=== PATIENT | female | born 1990 | race Caucasian/White ===

== ENCOUNTER → 2016-10-29 | Outpatient (CLI) | payer OTHER ==
--- NOTE | 2016-10-29 11:56 | USB ---
Reason for exam: clinical finding. History: Family history of breast cancer in maternal grandmother. Indicated problem(s): lump or thickening in the left breast. Physical Findings: Nurse Summary: bilateral nodularity, more prominent left breast 12 o'clock, all soft, movable (nurse ts). US Breast LT Left breast ultrasound includes all four quadrants, the retroareolar region and axilla. Finding demonstrates nipple ductal prominence. These results were verbally communicated with the patient and result sheet given to the patient on 10/29/16. ASSESSMENT: Benign, BI-RAD 2 RECOMMENDATION: Routine screening mammogram of both breasts at age 38. (or sooner if clinically indicated) Manage patient on a clinical basis.
== END | disposition home or self-care (01) ==
LOC: RADUSWWP 10:25
PROVIDERS: ATTEND Obstetrics & Gynecology
DX: N63 Unspecified lump in breast (principal)

== ENCOUNTER 2017-07-09 14:20 | Emergency (ER) | payer OTHER ==
[2017-07-09] MEDS ORDERED: RX INFO: IV CONTRAST WAS GIVEN 1 EACH MISC MISCELLANE PRN (14:39)
[2017-07-09 14:51] VITALS: RESP 18
--- NOTE | 2017-07-09 14:52 | ED ---
General Adult HPI - General Chief complaint: Chest Pain Stated complaint: Chest pain/sob Source: patient Mode of arrival: wheelchair Limitations: no limitations - History of Present Illness Initial comments: Juan is a 26 yo female with no significant PMH who presents to the ED today via private vehicle for evaluation of sharp right sided chest pain. Patient reports she had cosmetic surgery, breast augmentation and tummy tuck approximately 3 weeks ago. She has been healing well from that procedure. Patient reports that over the past 3 days she has experienced a pressure in her chest, today she developed a sharp stabbing pain in her right chest. Pain is worse with inspiration. Patient feels like she cannot breathe because her inspiration is limited by pain. Patient has no known cardiac history, no history of DVT/PE, she is uncertain of family history, she is on no estrogen supplements, she reports she has been active since her surgery. She denies any fevers, chills, nausea or vomiting. She denies any pain at her incision sites. - Related Data Home Medications Medication Instructions Recorded Confirmed Cephalexin [Keflex] 250 mg PO QID 07/09/17 07/09/17 Previous Rx's Medication Instructions Recorded Azithromycin 250 mg PO DAILY 4 Days #4 tab 07/09/17 Allergies Allergy/AdvReac Type Severity Reaction Status Date / Time No Known Allergies Allergy Verified 07/09/17 14:34 Review of Systems ROS Statement: Those systems with pertinent positive or pertinent negative responses have been documented in the HPI. ROS Other: All systems not noted in ROS Statement are negative. Constitutional: Denies: fever ENT: Denies: throat pain Respiratory: Reports: dyspnea Cardiovascular: Reports: chest pain, palpitations Endocrine: Denies: fatigue Gastrointestinal: Denies: nausea, vomiting Genitourinary: Denies: urgency, dysuria Musculoskeletal: Denies: back pain Skin: Reports: other (well healing surgical incisions). Denies: rash Neurological: Denies: headache, weakness Psychiatric: Denies: anxiety, depression Hematological/Lymphatic: Denies: easy bleeding, easy bruising Past Medical History Past Medical History: No Reported History History of Any Multi-Drug Resistant Organisms: None Reported Additional Past Surgical History / Comment(s): tummy tuck and breast augmentation Past Psychological History: No Psychological Hx Reported Smoking Status: Never smoker Past Alcohol Use History: Occasional Past Drug Use History: None Reported General Exam Limitations: no limitations General appearance: alert, other (appears uncomfortable, crying) Head exam: Present: atraumatic, normocephalic Eye exam: Present: normal appearance, PERRL ENT exam: Present: normal exam Neck exam: Present: normal inspection Respiratory exam: Present: other (tachypnea, decreased breath sounds on right). Absent: wheezes Cardiovascular Exam: Present: regular rate, normal rhythm, normal heart sounds GI/Abdominal exam: Present: soft. 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 No evidence of acute right heart strain. No S1Q3 T3. No evience of acute ischemia or infarction. Medical Decision Making - Medical Decision Making Patient seen and evaluated Vital signs reviewed - tachy at 94, SpO2 100% on RA History obtained from patient - concern for PE given recent surgery Labs, imaging ordered EKG no acute findings Chest x-ray no acute pathology noted Labs are reviewed, no significant abnormalities CT angiogram of the chest reveals no acute pulmonary embolism however there is noted to be right lower lobe pneumonia. His results were discussed with the patient, patient states that she has been wearing a binder around her abdomen which has prevented her from taking deep breaths since having her surgery. She states that she thought the binder was causing her pain which is why she stopped wearing 3 days ago but her pain is persistent. I agree with the patient that this likely contributed to her development of pneumonia. I provided the patient with an incentive spirometer and patient was taught how to properly use the incentive spirometer by business services tech. First dose of azithromycin was ordered in the ER, patient will be discharged home with the remaining Z-Sadi. Patient advised to treat the pleuritic chest pain with anti-inflammatories such as Motrin and Tylenol. As the patient to return the hospital for any acute worsening of her chest pain, development of worsening shortness breath, fever, productive cough or any new or concerning symptoms. At this time I feel the patient's chest pain is pleuritic in nature and likely related to the development of a pneumonia. I do not feel that the chest pain is secondary to a cardiac cause or any other emergent cause requiring further evaluation or intervention at this time. All questions pertaining to care were answered the best my ability the patient was discharged home in stable condition. - Lab Data Result diagrams: 07/09/17 14:55 07/09/17 14:55 Lab Results 07/09/17 07/09/17 07/09/17 Range/Units 14:55 14:55 14:55 WBC 6.2 (3.8-10.6) k/uL RBC 4.11 (3.80-5.40) m/uL Hgb 12.5 (11.4-16.0) gm/dL Hct 36.5 (34.0-46.0) % MCV 88.8 (80.0-100.0) fL MCH 30.5 (25.0-35.0) pg MCHC 34.4 (31.0-37.0) g/dL RDW 12.3 (11.5-15.5) % Plt Count 373 (150-450) k/uL Neutrophils % 70 % Lymphocytes % 20 % Monocytes % 7 % Eosinophils % 2 % Basophils % 0 % Neutrophils # 4.3 (1.3-7.7) k/uL Lymphocytes # 1.2 (1.0-4.8) k/uL Monocytes # 0.4 (0-1.0) k/uL Eosinophils # 0.1 (0-0.7) k/uL Basophils # 0.0 (0-0.2) k/uL PT (9.0-12.0) sec INR (<1.2) Sodium 142 (137-145) mmol/L Potassium 4.0 (3.5-5.1) mmol/L Chloride 101 (98-107) mmol/L Carbon Dioxide 27 (22-30) mmol/L Anion Gap 14 mmol/L BUN 11 (7-17) mg/dL Creatinine 0.50 L (0.52-1.04) mg/dL Est GFR (CKD-EPI)AfAm >90 (>60 ml/min/1.73 sqM) Est GFR (CKD-EPI)NonAf >90 (>60 ml/min/1.73 sqM) Glucose 94 (74-99) mg/dL Calcium 9.8 (8.4-10.2) mg/dL Troponin I (0.000-0.034) ng/mL NT-Pro-B Natriuret Pep 55 pg/mL Urine HCG, Qual (Not Detectd) 07/09/17 07/09/17 07/09/17 Range/Units 14:55 14:55 14:55 WBC (3.8-10.6) k/uL RBC (3.80-5.40) m/uL Hgb (11.4-16.0) gm/dL Hct (34.0-46.0) % MCV (80.0-100.0) fL MCH (25.0-35.0) pg MCHC (31.0-37.0) g/dL RDW (11.5-15.5) % Plt Count (150-450) k/uL Neutrophils % % Lymphocytes % % Monocytes % % Eosinophils % % Basophils % % Neutrophils # (1.3-7.7) k/uL Lymphocytes # (1.0-4.8) k/uL Monocytes # (0-1.0) k/uL Eosinophils # (0-0.7) k/uL Basophils # (0-0.2) k/uL PT 10.2 (9.0-12.0) sec INR 1.0 (<1.2) Sodium (137-145) mmol/L Potassium (3.5-5.1) mmol/L Chloride (98-107) mmol/L Carbon Dioxide (22-30) mmol/L Anion Gap mmol/L BUN (7-17) mg/dL Creatinine (0.52-1.04) mg/dL Est GFR (CKD-EPI)AfAm (>60 ml/min/1.73 sqM) Est GFR (CKD-EPI)NonAf (>60 ml/min/1.73 sqM) Glucose (74-99) mg/dL Calcium (8.4-10.2) mg/dL Troponin I <0.012 (0.000-0.034) ng/mL NT-Pro-B Natriuret Pep pg/mL Urine HCG, Qual Not Detected (Not Detectd) Disposition Clinical Impression: Right lower lobe pneumonia, Pleuritic chest pain Disposition: HOME SELF-CARE Condition: Good Instructions: Pleurisy (ED), Pneumonia (ED) Prescriptions: Azithromycin 250 mg PO DAILY 4 Days #4 tab Is patient prescribed a controlled substance at d/c from ED?: No If prescribed controlled substance>3 days was MAPS reviewed?: No When asked, does pt state using other controlled substances?: No Referrals: Thien Quesada MD [Primary Care Provider] - 1-2 days Time of Disposition: 17:22
[2017-07-09 15:08] LABS: Basophils % (A) 0 %; Eosinophils # (A) 0.1 k/uL (0-0.7); Eosinophils % (A) 2 %; HCT 36.5 % (34.0-46.0); HGB 12.5 gm/dL (11.4-16.0); Lymphocytes # (A) 1.2 k/uL (1.0-4.8); Lymphocytes % (A) 20 %; MCH 30.5 pg (25.0-35.0); MCHC 34.4 g/dL (31.0-37.0); MCV 88.8 fL (80.0-100.0); Mean Platelet Volume 6.4; Monocytes # (A) 0.4 k/uL (0-1.0); Monocytes % (A) 7 %; Neutrophils # (A) 4.3 k/uL (1.3-7.7); Neutrophils % (A) 70 %; Platelet Count 373 k/uL (150-450); RBC 4.11 m/uL (3.80-5.40); RDW 12.3 % (11.5-15.5); WBC 6.2 k/uL (3.8-10.6)
[2017-07-09 15:19] LABS: Anion Gap 14 mmol/L; Blood Urea Nitrogen 11 mg/dL (7-17); Calcium 9.8 mg/dL (8.4-10.2); Carbon Dioxide 27 mmol/L (22-30); Chloride 101 mmol/L (98-107); Glucose 94 mg/dL (74-99); Sodium 142 mmol/L (137-145)
[2017-07-09 15:21] LABS: Prothrombin Time 10.2 sec (9.0-12.0)
--- NOTE | 2017-07-09 15:44 | XR ---
EXAMINATION TYPE: XR chest 2V DATE OF EXAM: 07/09/2017 COMPARISON: NONE HISTORY: Right-sided chest pain TECHNIQUE: Frontal and lateral views of the chest are obtained. FINDINGS: There is no focal air space opacity, pleural effusion, or pneumothorax seen. The cardiac silhouette size is within normal limits. The osseous structures are intact. IMPRESSION: No acute cardiopulmonary process.
--- NOTE | 2017-07-09 16:51 | CT ---
EXAMINATION TYPE: CT angio chest DATE OF EXAM: 07/09/2017 4:39 PM COMPARISON: NONE HISTORY: Mid Chest pain and pressure with Difficulty breathing for 3 days. Post OP breast augmentati on [address] DLP: 317.7 mGycm Automated exposure control for dose reduction was used. CONTRAST: CTA scan of the thorax is performed with IV Contrast, patient injected with 70 mL of Isovue 370, pulm onary embolism protocol. There are 3-D post processed images.. FINDINGS: There is some minimal reticular nodular infiltrate at the right posterior lung base. There is small r ight pleural effusion. Heart size is normal. There is no pericardial effusion. There is no mediastina l adenopathy. There are no hilar masses. There is normal contrast opacification of pulmonary arteries . I see no filling defect. Thoracic aorta shows no sign of aneurysm or dissection. There are bilatera l breast implants. IMPRESSION: NO EVIDENCE OF PULMONARY EMBOLISM. MINIMAL PLEURAL FLUID AND INFILTRATE AT THE RIGHT LUNG BASE.
[2017-07-09 17:14] VITALS: PULSE 86; TEMP 97.2
[2017-07-09 17:15] VITALS: BP 112/65
[2017-07-09] MEDS ORDERED: AZITHROMYCIN 500 MG TAB PO STA (17:20)
[2017-07-09] MEDS ORDERED: KETOROLAC 30 MG/ML 1 ML VIAL IVP ONE (17:20)
== END 2017-07-09 18:00 | disposition home or self-care (01) ==
LOC: EC 14:20
DX: J18.9 Pneumonia, unspecified organism (principal)
CPT/HCPCS: 36415; 93005; 83880; 80048; 84484; 85025; 85610; 81025; 71046; 71275; 99285; 96374; J1885; Q9967

== ENCOUNTER → 2018-04-08 | Outpatient (CLI) | payer OTHER ==
--- NOTE | 2018-04-11 10:10 | USB ---
Reason for exam: clinical finding. History: Family history of breast cancer in maternal grandmother. Silicone gel implants in both breasts, May 2017. Indicated problem(s): palpable abnormality in the right breast. Physical Findings: Nurse Summary: palpable 8-9 o'clock right breast (nurse kp). US Breast BILAT Right complete breast ultrasound includes all four quadrants, the retroareolar region and axilla. Finding demonstrates a 0.8 x 0.5 x 0.8cm hypoechoic lesion at 6 o'clock and a 2.0 x 1.2 x 1.4cm hypoechoic lesion at 8 o'clock, biopsy advised recommendation for possible biopsy second lesion based on pathology results of index lesion. Left complete breast ultrasound includes all four quadrants, the retroareolar region and axilla. Finding demonstrates a 0.5 x 0.3 x 0.5cm node at 4 o'clock. These results were verbally communicated with the patient and result sheet given to the patient on 04/08/18. ASSESSMENT: Suspicious, BI-RAD 4 RECOMMENDATION: Ultrasound core biopsy of the right breast. Called Dr. Hodge with mammographic findings and has scheduled an appointment for the patient for 04/21/18 at 10:[address]. Whiteside. Biopsy scheduled for 04/15/18 at 9:00. PRELIMINARY REPORT CALLED AND FAXED TO DR. WHITESIDE ON 04/08/18.
== END | disposition home or self-care (01) ==
LOC: RADUSWWP 15:19
PROVIDERS: ATTEND Obstetrics & Gynecology
DX: N63.10 Unspecified lump in the right breast, unspecified quadrant (principal); N63.20 Unspecified lump in the left breast, unspecified quadrant

== ENCOUNTER → 2018-04-15 | Day surgery (SDC) | payer OTHER ==
[2018-04-15 08:27] VITALS: RESP 18; BMI 27.0
--- NOTE | 2018-04-15 09:49 | USB ---
EXAMINATION TYPE: US biopsy breast VAD RT DATE OF EXAM: 04/15/2018 CLINICAL HISTORY: N63 LUMP. Abnormal breast ultrasound. TECHNIQUE: Ultrasound guided core biopsy of right breast. COMPARISON: Bilateral breast ultrasound dated 04/08/2018 FINDINGS: The procedure of ultrasound guided core biopsy was explained to the patient. Benefits, alternatives, and risks were discussed. An informed consent was then obtained. Preprocedural timeout was performed. The patient was placed in supine positioning for imaging and for the procedure. The overlying skin was prepped and draped in usual sterile fashion. 10 cc of lidocaine buffered with bicarbonate was used as anesthetic into the skin and subcutaneous tissues as well as 5 cc of lidocaine with epinephrine in the deeper subcutaneous tissues up to the 2.0 cm mass at the 8:00 position in the right breast. Under ultrasound guidance, a 12-gauge vacuum assisted biopsy gun device was used to obtain 4 core samples. Following this, a coil-shaped biopsy marker was left adjacent to lesion, well visualized on ultrasound. The patient tolerated the procedure well without any immediate complication. The patient was kept in the radiology department for short stay after the procedure and then discharged home in stable condition. IMPRESSION: Successful, uncomplicated ultrasound guided core biopsy of the 2 cm mass at the 8:00 position in the right breast, full pathology results to follow. Note although this mass likely represents a benign fibroadenoma a similar appearing 8 mm mass is seen at the 6:00 position. Recommendation for this mass will be made on radiologic/pathologic correlation. Pathology Results: High Risk RIGHT BREAST, ULTRASOUND GUIDED CORE BIOPSY: Benign fibroepithelial lesion, favor cellular fibroadenoma. See note. Recommendation Surgical consult of the right breast. (Consider excision based on pathology report. Second similar danilo at 6 o'clock zone A on the right. Given the size, 6 month follow up is recommended) [facility]
[2018-04-15 10:23] VITALS: BP 112/68; PULSE 70; TEMP 98
== END ==
LOC: RADUSWWP 07:47
PROVIDERS: ATTEND Surgery
DX: D24.1 Benign neoplasm of right breast (principal)
CPT/HCPCS: 88305; 19083; A4648; J2001

== ENCOUNTER 2018-09-20 13:36 | Emergency (ER) | payer OTHER ==
[2018-09-20 16:47] LABS: Basophils % (A) 0 %; Eosinophils % (A) 1 %; HGB 13.3 gm/dL (11.4-16.0); Lymphocytes # (A) 1.3 k/uL (1.0-4.8); Lymphocytes % (A) 21 %; MCH 30.6 pg (25.0-35.0); MCHC 33.1 g/dL (31.0-37.0); MCV 92.5 fL (80.0-100.0); Mean Platelet Volume 6.7; Monocytes # (A) 0.4 k/uL (0-1.0); Monocytes % (A) 6 %; Neutrophils # (A) 4.4 k/uL (1.3-7.7); Neutrophils % (A) 72 %; Platelet Count 298 k/uL (150-450); RBC 4.33 m/uL (3.80-5.40); RDW 13.3 % (11.5-15.5); WBC 6.2 k/uL (3.8-10.6)
[2018-09-20 16:53] LABS: ALT 28 U/L (9-52); AST 27 U/L (14-36); African American GFR (CKD) >90 (>60 ml/min/1.73 sqM); Albumin 4.8 g/dL (3.5-5.0); Alkaline Phosphatase 51 U/L (38-126); Anion Gap 9 mmol/L; Blood Urea Nitrogen 11 mg/dL (7-17); Calcium 9.6 mg/dL (8.4-10.2); Carbon Dioxide 25 mmol/L (22-30); Chloride 106 mmol/L (98-107); Glucose 100 mg/dL (74-99); Potassium 3.8 mmol/L (3.5-5.1); Sodium 140 mmol/L (137-145); Total Bilirubin 0.5 mg/dL (0.2-1.3); Total Protein 7.4 g/dL (6.3-8.2)
--- NOTE | 2018-09-20 16:55 | ED ---
General Adult HPI - General Chief complaint: Dizziness Stated complaint: Dizziness, eye pressure Time Seen by Provider: 09/20/18 16:06 Source: patient, RN notes reviewed Mode of arrival: ambulatory Limitations: no limitations - History of Present Illness Initial comments: 27-year-old female presents emergency Department from ophthalmology office for evaluation secondary ongoing left eye pressure, dizziness and abnormal findings on exam. Patient was found to have compression of her left optic nerve. They felt that there may be some increase in pressure. Patient was referred to a specialist though she was told that she was concerned she can go to the ER to rule out possible mass. Patient has no blurred vision no current symptoms other than intermittent pressure behind her left eye. Patient does not have chronic migraines. Denies any chest pain, shortness breath, nausea or vomiting. Patient states she is just more concerned than anything. - Related Data Home Medications Medication Instructions Recorded Confirmed Dextroamphetamine/Amphetamine 5 mg PO DAILY PRN 04/11/18 09/20/18 [Adderall] Biotin 5 mg PO DAILY 09/20/18 09/20/18 Multivitamins, Thera [Multivitamin 1 tab PO DAILY 09/20/18 09/20/18 (formulary)] Allergies Allergy/AdvReac Type Severity Reaction Status Date / Time No Known Allergies Allergy Verified 09/20/18 16:06 Review of Systems ROS Statement: Those systems with pertinent positive or pertinent negative responses have been documented in the HPI. ROS Other: All systems not noted in ROS Statement are negative. Past Medical History Past Medical History: No Reported History History of Any Multi-Drug Resistant Organisms: None Reported Past Surgical History: No Surgical Hx Reported Additional Past Surgical History / Comment(s): tummy tuck and breast augmentation Past Psychological History: ADD/ADHD Smoking Status: Never smoker Past Alcohol Use History: Occasional Past Drug Use History: None Reported General Exam Limitations: no limitations General appearance: alert, in no apparent distress Head exam: Present: atraumatic, normocephalic, normal inspection Eye exam: Present: normal appearance, PERRL, EOMI. Absent: scleral icterus, conjunctival injection, periorbital swelling ENT exam: Present: normal exam, normal oropharynx, mucous membranes moist, TM's normal bilaterally Neck exam: Present: normal inspection, full ROM. Absent: tenderness, meningismus, lymphadenopathy Respiratory exam: Present: normal lung sounds bilaterally. Absent: respiratory distress, wheezes, rales, rhonchi, stridor Cardiovascular Exam: Present: regular rate, normal rhythm, normal heart sounds. Absent: systolic murmur, diastolic murmur, rubs, gallop, clicks Neurological exam: Present: alert, oriented X3, CN II-XII intact, reflexes normal. Absent: motor sensory deficit Skin exam: Present: warm, dry, intact, normal color. Absent: rash Course Vital Signs 09/20/18 09/20/18 14:10 16:35 Temperature 98.4 F Pulse Rate 89 79 Respiratory 18 16 Rate Blood Pressure 123/80 113/71 O2 Sat by Pulse 99 98 Oximetry Medical Decision Making - Medical Decision Making 27-year-old female presents emergency Department with chief complaint of ongoing headache dizziness and left eye pressure. This is not an acute onset. Patient was evaluated by insole lip turner referred to a specialist today. Patient was told she did go to the emergency Department to rule out any other concerns. Patient will follow-up with her specialist and return for any worsening symptoms. - Lab Data Result diagrams: 09/20/18 16:34 09/20/18 16:34 Lab Results 09/20/18 09/20/18 Range/Units 16:34 16:34 WBC 6.2 (3.8-10.6) k/uL RBC 4.33 (3.80-5.40) m/uL Hgb 13.3 (11.4-16.0) gm/dL Hct 40.0 (34.0-46.0) % MCV 92.5 (80.0-100.0) fL MCH 30.6 (25.0-35.0) pg MCHC 33.1 (31.0-37.0) g/dL RDW 13.3 (11.5-15.5) % Plt Count 298 (150-450) k/uL Neutrophils % 72 % Lymphocytes % 21 % Monocytes % 6 % Eosinophils % 1 % Basophils % 0 % Neutrophils # 4.4 (1.3-7.7) k/uL Lymphocytes # 1.3 (1.0-4.8) k/uL Monocytes # 0.4 (0-1.0) k/uL Eosinophils # 0.0 (0-0.7) k/uL Basophils # 0.0 (0-0.2) k/uL Sodium 140 (137-145) mmol/L Potassium 3.8 (3.5-5.1) mmol/L Chloride 106 (98-107) mmol/L Carbon Dioxide 25 (22-30) mmol/L Anion Gap 9 mmol/L BUN 11 (7-17) mg/dL Creatinine 0.47 L (0.52-1.04) mg/dL Est GFR (CKD-EPI)AfAm >90 (>60 ml/min/1.73 sqM) Est GFR (CKD-EPI)NonAf >90 (>60 ml/min/1.73 sqM) Glucose 100 H (74-99) mg/dL Calcium 9.6 (8.4-10.2) mg/dL Total Bilirubin 0.5 (0.2-1.3) mg/dL AST 27 (14-36) U/L ALT 28 (9-52) U/L Alkaline Phosphatase 51 (38-126) U/L Total Protein 7.4 (6.3-8.2) g/dL Albumin 4.8 (3.5-5.0) g/dL Disposition Clinical Impression: Dizziness, Eye pressure Disposition: HOME SELF-CARE Condition: Stable Instructions (If sedation given, give patient instructions): Dizziness (ED) Additional Instructions: Please return to the Emergency Department if symptoms worsen or any other concerns. Is patient prescribed a controlled substance at d/c from ED?: No Referrals: Thien Quesada MD [Primary Care Provider] - 1-2 days Time of Disposition: 18:12
--- NOTE | 2018-09-20 17:26 | CT ---
EXAMINATION: CT brain wo con DATE AND TIME: 09/20/2018 4:50 PM CLINICAL INDICATION: PHH; Dizziness, ocular pain, abnormal ophthalmology TECHNIQUE: Standard departmental protocol.; 1024.4; COMPARISON: None. FINDINGS: The calvarium is intact. There is no intracranial hemorrhage. There is no intracranial mass or mass effect. No definite new intra-axial or extra-axial attenuation defect. The paranasal sinuses, middle ear cavities, and mastoid sinus air cells are clear. The orbits are unremarkable. IMPRESSION: NO ACUTE PROCESS.
[2018-09-20 18:23] VITALS: BP 111/74; PULSE 81; RESP 18; TEMP 99.4
== END 2018-09-20 18:22 | disposition home or self-care (01) ==
LOC: EC 13:36
DX: R42 Dizziness and giddiness (principal); H57.89 Other specified disorders of eye and adnexa; Z79.899 Other long term (current) drug therapy
CPT/HCPCS: 36415; 70450; 80053; 85025; 99284

== ENCOUNTER → 2018-09-30 | Outpatient (CLI) | payer OTHER ==
--- NOTE | 2018-09-30 11:56 | USB ---
Reason for exam: follow-up at short interval from prior study. History: Patient has history of high-risk lesion on a previous biopsy at age 27. Family history of breast cancer in maternal grandmother. High risk US biopsy breast VAD RT of the right breast, April 15, 2018. Silicone gel implants in both breasts, May 2017. Physical Findings: Nurse Summary: 1cm palpable in the right breast at 8-9 o'clock (nurse kp). US Breast RT Right complete breast ultrasound includes all four quadrants, the retroareolar region and axilla. Finding demonstrates a 0.8 x 0.5 x 0.9cm hypoechoic, vascular lesion at 6 o'clock previously measured 0.8 x 0.5 x 0.8cm and a 2.0 x 1.4 x 1.4cm hypoechoic, vascular lesion at 8 o'clock previously measured 2.0 x 1.2 x 1.4cm. These results were verbally communicated with the patient and result sheet given to the patient on 09/30/18. ASSESSMENT: Probably benign, BI-RAD 3 RECOMMENDATION: Ultrasound of the right breast in 6 months. (prior biopsy at 8 o'clock, favor fibroadenoma versus phylloides)
== END ==
LOC: RADUSWWP 09:40
PROVIDERS: ATTEND Surgery
DX: N63.10 Unspecified lump in the right breast, unspecified quadrant (principal)

== ENCOUNTER → 2019-04-11 | Outpatient (CLI) | payer OTHER ==
--- NOTE | 2019-04-12 08:34 | USB ---
Reason for exam: clinical finding. History: Patient has history of high-risk lesion on a previous biopsy at age 27. Family history of breast cancer in maternal aunt at age 50 and breast cancer in maternal grandmother. High risk US biopsy breast VAD RT of the right breast, April 15, 2018. Silicone gel implants in both breasts, May 2017. Physical Findings: Nurse Summary: hard, palpable 0.5cm lump right breast 8 o'clock (nurse TM). US Breast RT Right complete breast ultrasound includes all four quadrants, the retroareolar region and axilla. Finding demonstrates a 12 x 7 x 15mm hypoechoic lesion at 6 o'clock, biopsy recommended given interval enlargement 12. x 0.7cm versus 0.8 x 0.5cm and a 18 x 12 x 13mm stable, hypoechoic lesion at 8 o'clock BB. These results were verbally communicated with the patient and result sheet given to the patient on 04/11/19. ASSESSMENT: Suspicious, BI-RAD 4 RECOMMENDATION: Ultrasound core biopsy of the right breast. (6 o'clock) Called office with mammographic findings and has scheduled an appointment for the patient for 05/11/19 at 8:[address] Whiteside. Biopsy scheduled for 05/05/19 at 11:30. PRELIMINARY REPORT CALLED AND FAXED TO DR. WHITESIDE ON 04/12/19.
== END | disposition home or self-care (01) ==
LOC: RADUSWWP 13:56
PROVIDERS: ATTEND Surgery
DX: R92.8 Other abnormal and inconclusive findings on diagnostic imaging of breast (principal)

== ENCOUNTER → 2020-05-09 | Outpatient (CLI) | payer OTHER ==
--- NOTE | 2020-05-09 09:56 | US ---
EXAMINATION TYPE: US thyroid st tissue head/neck DATE OF EXAM: 05/09/2020 COMPARISON: 10/08/2015 CLINICAL HISTORY: E04.1 Thyroid nodule. thyroid nodule trouble swalling GLAND SIZE: Right Lobe: 5.5 x 1.8 x 1.7 cm Overall Parenchyma: homogenous Left Lobe: 5.0 x 1.7 x 2.0 cm Overall Parenchyma: homogeneous Isthmus Thickness: .4 cm NODULES RIGHT: # of nodules measured on right: 1 1. .6 X .4 x .6 cm, lower , mixed cystic and solid, hypoechoic nodule, which is wider than tall, wi th smooth margins, without echogenic foci. Prior size: .6 x .4 x .4 cm LEFT: # of nodules measured on left: 1 1. .7 X .6 x .7 cm, mid , mixed cystic and solid, hypoechoic nodule, which is wider than tall, with smooth margins, without echogenic foci. Prior size: .4 x .5 x .4 cm ISTHMUS: # of nodules measured in the isthmus: 0 Bilateral neck scanned, no evidence of lymphadenopathy. IMPRESSION: 1. Thyromegaly with the bilateral subcentimeter thyroid nodules. No thyroid nodule measuring 1 cm or greater.
== END ==
LOC: RADUSWWP 09:26
PROVIDERS: ATTEND Surgery
DX: E04.2 Nontoxic multinodular goiter (principal)
CPT/HCPCS: 76536

== ENCOUNTER → 2020-05-09 | Day surgery (SDC) | payer OTHER ==
[2020-05-09 10:12] VITALS: TEMP 98.1
--- NOTE | 2020-05-09 11:36 | USB ---
EXAMINATION TYPE: US biopsy breast VAD RT DATE OF EXAM: 05/09/2020 CLINICAL HISTORY: R92.8 ABNORMAL MAMMOGRAM. TECHNIQUE: Ultrasound guided core biopsy of right breast. Referring physician requests 6:00 lesion right breast were core biopsy COMPARISON: 04/11/2019 FINDINGS: The procedure of ultrasound guided core biopsy was explained to the patient. Benefits, alternatives, and risks were discussed. An informed consent was then obtained. The patient was placed in supine positioning for imaging and for the procedure. The overlying skin was prepped and draped in usual sterile fashion. Lidocaine buffered with bicarbonate was used as anesthetic into the skin and subcutaneous tissue up to area of concern in the right breast. A bebeto was made with surgical scalpel. Under ultrasound guidance, a 12-gauge vacuum assisted biopsy gun device was used to obtain 6 core samples from the requested lesion 6:00 position right breast. The patient refused to surgical clip. Therefore, no postprocedural mammogram was performed. The patient tolerated the procedure well without any immediate complication. The patient was kept in the radiology department for short stay after the procedure and then discharged home in stable condition. IMPRESSION: Successful, uncomplicated ultrasound guided core biopsy of area of concern in the right breast, full pathology results to follow. Pathology Results: Benign RIGHT BREAST, CORE BIOPSY: Benign fibroadenoma. Rare microcalcification identified. Recommendation Follow up ultrasound of the right breast in 6 months. KERRI
--- NOTE | 2020-05-09 12:08 | USB ---
Reason for exam: clinical finding. History: Patient has history of high-risk lesion on a previous biopsy at age 27. Family history of breast cancer in maternal aunt at age 50 and breast cancer in maternal grandmother. High risk US biopsy breast VAD RT of the right breast, April 15, 2018. Silicone gel implants in both breasts, May 2017. Physical Findings: Nurse did not find any significant physical abnormalities on exam. US Breast LT Left complete breast ultrasound includes all four quadrants, the retroareolar region and axilla. Finding demonstrates a 5 x 2 x 7mm oval, cystic lesion at the posterior nipple. These results were verbally communicated with the patient and result sheet given to the patient on 05/09/20. ASSESSMENT: Benign, BI-RAD 2 RECOMMENDATION: Routine screening mammogram of both breasts in 1 year.
[2020-05-09 12:12] VITALS: BP 111/75; PULSE 65; RESP 16
== END ==
LOC: RADUSWWP 09:28
PROVIDERS: ATTEND Surgery
DX: D24.1 Benign neoplasm of right breast (principal); R92.0 Mammographic microcalcification found on diagnostic imaging of breast; R92.8 Other abnormal and inconclusive findings on diagnostic imaging of breast
CPT/HCPCS: 88305; 19083; 76641; J2001; 76536

== ENCOUNTER → 2020-10-14 | Outpatient (CLI) | payer OTHER ==
[2020-10-14 15:00] LABS: Basophils % (A) 1 %; Eosinophils # (A) 0.1 k/uL (0-0.7); Eosinophils % (A) 1 %; HCT 40.2 % (34.0-46.0); HGB 13.1 gm/dL (11.4-16.0); Lymphocytes # (A) 1.2 k/uL (1.0-4.8); Lymphocytes % (A) 18 %; MCHC 32.7 g/dL (31.0-37.0); MCV 94.8 fL (80.0-100.0); Mean Platelet Volume 6.9; Monocytes # (A) 0.4 k/uL (0-1.0); Monocytes % (A) 6 %; Neutrophils % (A) 73 %; Platelet Count 337 k/uL (150-450); RBC 4.24 m/uL (3.80-5.40); RDW 13.2 % (11.5-15.5); WBC 6.8 k/uL (3.8-10.6)
[2020-10-14 15:11] LABS: ALT 32 U/L (4-34); AST 29 U/L (14-36); African American GFR (CKD) >90 (>60 ml/min/1.73 sqM); Albumin 4.7 g/dL (3.5-5.0); Albumin/Globulin Ratio 1.8; Alkaline Phosphatase 79 U/L (38-126); Anion Gap 7 mmol/L; Blood Urea Nitrogen 12 mg/dL (7-17); C Reactive Protein 1.3 mg/dL (<1.0); Calcium 9.7 mg/dL (8.4-10.2); Carbon Dioxide 27 mmol/L (22-30); Chloride 103 mmol/L (98-107); Globulin 2.6 g/dL; Glucose 101 mg/dL (74-99); Non-African American GFR(CKD) >90 (>60 ml/min/1.73 sqM); Potassium 4.7 mmol/L (3.5-5.1); Sodium 137 mmol/L (137-145); Total Bilirubin 0.3 mg/dL (0.2-1.3); Total Protein 7.3 g/dL (6.3-8.2)
[2020-10-14 15:34] LABS: Creatine Kinase MB 0.7 ng/mL (0.0-2.4); Troponin I <0.012 ng/mL (0.000-0.034)
[2020-10-14 17:37] LABS: Erythrocyte Sedimentation Rate 14 mm/hr (0-20)
== END | disposition home or self-care (01) ==
LOC: LABWHC1 14:38
PROVIDERS: ATTEND Nurse Practitioner Adult Health
DX: R07.9 Chest pain, unspecified (principal)
CPT/HCPCS: 36415; 80053; 82553; 84484; 85025; 85379; 85652; 86140

== ENCOUNTER → 2020-11-11 | Outpatient (CLI) | payer OTHER ==
--- NOTE | 2020-11-11 09:52 | USB ---
Reason for exam: clinical finding. History: Patient has history of high-risk lesion on a previous biopsy at age 27. Family history of breast cancer in maternal aunt at age 50 and breast cancer in maternal grandmother at age 50. Benign US biopsy breast VAD RT of the right breast, May 09, 2020. High risk US biopsy breast VAD RT of the right breast, April 15, 2018. Silicone gel implants in both breasts, May 2017. Physical Findings: Nurse Summary: right breast palpable 8 o'clock, 1 x 1cm, movable, nontender (nurse ts). US Breast RT Right complete breast ultrasound includes all four quadrants, the retroareolar region and axilla. Finding demonstrates a 0.9 x 0.7 x 1.1cm hypoechoic lesion at 6 o'clock and a 1.0 x 0.9 x 0.9cm hypoechoic lesion at 8 o'clock, consistent with fibroadenoma. These results were verbally communicated with the patient and result sheet given to the patient on 11/11/20. ASSESSMENT: Benign, BI-RAD 2 RECOMMENDATION: Routine screening mammogram of both breasts in 6 months. Back on schedule for April 2021.
== END | disposition home or self-care (01) ==
LOC: RADUSWWP 09:07
PROVIDERS: ATTEND Surgery
DX: R92.8 Other abnormal and inconclusive findings on diagnostic imaging of breast (principal)

== ENCOUNTER 2020-11-27 11:30 | Emergency (ER) | payer OTHER ==
[2020-11-27 11:53] VITALS: TEMP 98.8
[2020-11-27 13:09] LABS: Amorphous Sediment,Urine Moderate /hpf; Appearance,Urine Cloudy (Clear); Bilirubin,Urine Negative (Negative); Blood,Urine Negative (Negative); Color,Urine Light Yellow; Glucose,Urine (UA) Negative (Negative); Ketones,Urine Negative (Negative); Leukocyte Esterase,Urine Negative (Negative); Mucus,Urine Rare /hpf; Nitrite,Urine Negative (Negative); PH, Urine 7.5 (5.0-8.0); Protein,Urine Negative (Negative); RBC,Urine 1 /hpf (0-5); Specific Gravity,Urine 1.014 (1.001-1.035); Squamous Epithelial Cell,Urine <1 /hpf (0-4); Urobilinogen,Urine <2.0 mg/dL (<2.0); WBC,Urine 4 /hpf (0-5)
[2020-11-27] MEDS ORDERED: SODIUM CHLORIDE 0.9% 1,000 ML IV STA (13:35)
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
[2020-11-27 14:14] LABS: Basophils % (A) 0 %; Eosinophils # (A) 0.1 k/uL (0-0.7); Eosinophils % (A) 2 %; HCT 40.1 % (34.0-46.0); Lymphocytes # (A) 1.6 k/uL (1.0-4.8); Lymphocytes % (A) 17 %; MCH 30.7 pg (25.0-35.0); MCHC 32.5 g/dL (31.0-37.0); MCV 94.5 fL (80.0-100.0); Mean Platelet Volume 6.8; Monocytes # (A) 0.5 k/uL (0-1.0); Monocytes % (A) 6 %; Neutrophils % (A) 75 %; Platelet Count 319 k/uL (150-450); RBC 4.24 m/uL (3.80-5.40); RDW 12.9 % (11.5-15.5); WBC 9.4 k/uL (3.8-10.6)
[2020-11-27 14:22] LABS: ALT 26 U/L (4-34); AST 24 U/L (14-36); African American GFR (CKD) >90 (>60 ml/min/1.73 sqM); Albumin 4.2 g/dL (3.5-5.0); Alkaline Phosphatase 68 U/L (38-126); Amylase 70 U/L (30-110); Anion Gap 7 mmol/L; Blood Urea Nitrogen 9 mg/dL (7-17); Calcium 9.7 mg/dL (8.4-10.2); Carbon Dioxide 27 mmol/L (22-30); Chloride 103 mmol/L (98-107); Glucose 98 mg/dL (74-99); Lipase 263 U/L (23-300); Non-African American GFR(CKD) >90 (>60 ml/min/1.73 sqM); Potassium 4.5 mmol/L (3.5-5.1); Sodium 137 mmol/L (137-145); Total Bilirubin 0.2 mg/dL (0.2-1.3); Total Protein 6.9 g/dL (6.3-8.2)
--- NOTE | 2020-11-27 14:56 | CT ---
EXAMINATION TYPE: CT abdomen pelvis w con DATE OF EXAM: 11/27/2020 COMPARISON: None INDICATION: Abdominal distension and pain. DLP: 1011.1 mGycm, Automated exposure control for dose reduction was used. CONTRAST: 100 mL of Isovue 300. Study performed without Oral Contrast TECHNIQUE: Axial images were obtained from above the diaphragm to the pubic rami in the axial plane a t 5 mm thick sections. Reconstructed images are reviewed on the computer in the coronal plane. FINDINGS: Limited CT sections are obtained the lung bases. The lung bases are clear. Bilateral breast prosthe ses are noted. CT ABDOMEN: Liver: There is a 1.5 cm hypodensity which may have peripheral enhancement in the left lobe liver. Co rrelation with hepatic ultrasound is recommended. Evaluate for possible hemangioma. Spleen: Normal Pancreas: Normal Adrenal glands: The adrenal glands are normal. Gallbladder: Not identified. Correlate with surgical history. Kidneys: No masses are evident. No hydronephrosis is present. No cysts are present. Delayed images were obtained through the kidneys, which remain unremarkable. Aorta: Normal Inferior vena cava: Normal. CT PELVIS: Loops of bowel within the abdomen and pelvis are normal. There are loops of bowel which are incom pletely distended or lack oral contrast limiting their evaluation. Appendix: Normal as visualized. Urinary bladder: Normal. Genitourinary structures: Uterus and ovaries appear within normal limits for the patient's age. Osseous structures: No suspicious lytic or sclerotic lesions. There is a small sclerotic area on the right pubic symphysis may be a bone island. IMPRESSIONS: 1. Suspect hemangioma within the left lobe liver. Correlate with ultrasound. 2. No suspicious abnormalities to account for abdominal distention and pain
[2020-11-27 15:26] VITALS: BP 116/72; PULSE 73; RESP 16
== END 2020-11-27 15:26 | disposition home or self-care (01) ==
LOC: EC 11:30
DX: D18.09 Hemangioma of other sites (principal); R05 Cough; F90.9 Attention-deficit hyperactivity disorder, unspecified type; Z20.822 Contact with and (suspected) exposure to COVID-19; Z79.899 Other long term (current) drug therapy
CPT/HCPCS: 36415; 80053; 82150; 83690; 85025; 81001; 81025; 87635; 74177; 99285; Q9967

== ENCOUNTER 2021-01-07 22:32 | Emergency (ER) | payer OTHER ==
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
[2021-01-08 00:59] LABS: Basophils % (A) 0 %; Eosinophils % (A) 1 %; HCT 38.4 % (34.0-46.0); HGB 13.3 gm/dL (11.4-16.0); Lymphocytes # (A) 1.7 k/uL (1.0-4.8); Lymphocytes % (A) 23 %; MCH 31.5 pg (25.0-35.0); MCHC 34.5 g/dL (31.0-37.0); MCV 91.3 fL (80.0-100.0); Mean Platelet Volume 6.8; Monocytes # (A) 0.5 k/uL (0-1.0); Monocytes % (A) 6 %; Neutrophils # (A) 5.2 k/uL (1.3-7.7); Neutrophils % (A) 69 %; Platelet Count 314 k/uL (150-450); RBC 4.21 m/uL (3.80-5.40); RDW 13.2 % (11.5-15.5); WBC 7.5 k/uL (3.8-10.6)
[2021-01-08 01:11] LABS: ALT 24 U/L (4-34); AST 25 U/L (14-36); African American GFR (CKD) >90 (>60 ml/min/1.73 sqM); Albumin 4.6 g/dL (3.5-5.0); Alkaline Phosphatase 56 U/L (38-126); Anion Gap 8 mmol/L; Blood Urea Nitrogen 10 mg/dL (7-17); Calcium 9.4 mg/dL (8.4-10.2); Carbon Dioxide 24 mmol/L (22-30); Chloride 104 mmol/L (98-107); Glucose 92 mg/dL (74-99); Non-African American GFR(CKD) >90 (>60 ml/min/1.73 sqM); Potassium 3.6 mmol/L (3.5-5.1); Sodium 136 mmol/L (137-145); Total Bilirubin 0.4 mg/dL (0.2-1.3); Total Protein 7.4 g/dL (6.3-8.2)
[2021-01-08 01:17] LABS: Appearance,Urine Cloudy (Clear); Bilirubin,Urine Negative (Negative); Blood,Urine Negative (Negative); Color,Urine Yellow; Glucose,Urine (UA) Negative (Negative); Ketones,Urine 1+ (Negative); Leukocyte Esterase,Urine Trace (Negative); Mucus,Urine Moderate /hpf; Nitrite,Urine Negative (Negative); Protein,Urine Trace (Negative); RBC,Urine 2 /hpf (0-5); Specific Gravity,Urine 1.026 (1.001-1.035); Squamous Epithelial Cell,Urine 9 /hpf (0-4); Urobilinogen,Urine <2.0 mg/dL (<2.0); WBC,Urine 4 /hpf (0-5)
[2021-01-08 02:08] VITALS: RESP 18
[2021-01-08 02:14] VITALS: BP 113/80; PULSE 70; TEMP 98
== END 2021-01-08 01:35 | disposition home or self-care (01) ==
LOC: EC 22:32
DX: R07.9 Chest pain, unspecified (principal); R42 Dizziness and giddiness; F42.9 Obsessive-compulsive disorder, unspecified
CPT/HCPCS: 36415; 80053; 81001; 85025; 93005; 99285

== ENCOUNTER → 2021-02-05 | Outpatient (CLI) | payer OTHER ==
--- NOTE | 2021-02-05 14:54 | USB ---
Reason for exam: clinical finding. History: Patient has history of high-risk lesion on a previous biopsy at age 27. Family history of breast cancer in maternal aunt at age 50 and breast cancer in maternal grandmother at age 50. Benign US biopsy breast VAD RT of the right breast, May 09, 2020. High risk US biopsy breast VAD RT of the right breast, April 15, 2018. Silicone gel implants in both breasts, May 2017. Indicated problem(s): pain in the right breast. Physical Findings: Nurse did not find any significant physical abnormalities on exam. US Breast RT Right complete breast ultrasound includes all four quadrants, the retroareolar region and axilla. Finding demonstrates a 1.0 x 0.9 x 0.5cm solid, hypoechoic lesion at 6 o'clock, previously biopsied fibroadenoma, a 0.9 x 0.9 x 0.8cm hypoechoic, stable lesion at 8 o'clock, a 0.4 x 0.4 x 0.2cm cystic lesion at 9 o'clock and a 0.9 x 0.8 x 0.5cm hypoechoic lesion at 10 o'clock, new, biopsy recommended. These results were verbally communicated with the patient and result sheet given to the patient on 02/05/21. ASSESSMENT: Suspicious, BI-RAD 4 RECOMMENDATION: Ultrasound core biopsy of the right breast. Called office with mammographic findings, office will call patient to discuss concerns. PRELIMINARY REPORT CALLED AND FAXED TO DR. CABELLO ON 02/05/21.
== END | disposition home or self-care (01) ==
LOC: RADUSWWP 13:30
PROVIDERS: ATTEND Surgery
DX: N63.0 Unspecified lump in unspecified breast (principal)

== ENCOUNTER → 2021-03-19 | Day surgery (SDC) | payer OTHER ==
--- NOTE | 2021-03-19 12:19 | USB ---
EXAMINATION TYPE: US biopsy breast VAD RT DATE OF EXAM: 03/19/2021 CLINICAL HISTORY: N63 lump. TECHNIQUE: Ultrasound guided vaccuum assisted core biopsy of right breast. COMPARISON: 02/05/2021 FINDINGS: The ultrasound guided core biopsy procedure was explained to the patient. The risks, benefits, alternatives were discussed. Discussion included infection bleeding and prosthesis rupture. An informed consent was then obtained. Timeout was performed. The patient was placed in supine positioning for imaging and for the procedure. The overlying skin was prepped with betadine and sterilely draped in usual sterile fashion. Lidocaine 1% was used as anesthetic into the skin and deeper breast tissue up to area of concern in the breast. A small skin bebeto was made with surgical scalpel. Under ultrasound guidance, a 12-gauge vacuum assisted biopsy device was used to obtain 4 core samples. No biopsy clip was left in lesion. Patient refused. Lesion remains evident by ultrasound and can be relocated by ultrasound. Good hemostasis was obtained with direct pressure. Discharge instructions were discussed with the patient. The patient will follow up with the referring physician for results. The patient tolerated the procedure well without any immediate complication. No evidence of prosthesis rupture is evident. The patient was discharged to home in stable condition. IMPRESSION: 1. Successful ultrasound guided biopsy right breast. Recommendations: 1. Recommendations are pending pathology results. Pathology Results: Benign RIGHT BREAST, TEN O'CLOCK, ULTRASOUND GUIDED CORE BIOPSY: Fibroadenoma. Recommendation Follow up ultrasound of the right breast in 6 months. [facility]ITALTom
[2021-03-19 16:27] VITALS: BP 119/62; PULSE 66; RESP 16; TEMP 97.7
== END ==
LOC: RADUSWWP 10:35
PROVIDERS: ATTEND Surgery
DX: D24.1 Benign neoplasm of right breast (principal); R92.8 Other abnormal and inconclusive findings on diagnostic imaging of breast
CPT/HCPCS: 88305; 19083; J2001

== ENCOUNTER → 2021-10-08 | Outpatient (CLI) | payer OTHER ==
--- NOTE | 2021-10-10 15:50 | MM ---
Reason for Exam: Screening (asymptomatic). Patient History: Menarche at age 10. First Full-Term at age 18. Premenopausal. Hormonal Contraceptives for 2 years from age 15 until age 17. 03/19/2021, Benign Core Biopsy on the right side. 05/09/2020, Benign Core Biopsy on the right side. 04/15/2018, High risk Core Biopsy on the right side. 05/2017, Bilateral Implants. Maternal grandmother had breast cancer, age 50. Maternal aunt had breast cancer, age 50. Last menstrual period: 08/21/2021 Tissue Density: The breast tissue is heterogeneously dense. This may lower the sensitivity of mammography. Findings: Analyzed By CAD. Bilateral retropectoral silicone implants. Nodular asymmetric densities on the right located laterally on the CC view as well as superiorly and centrally on the MLO view. Additional focal asymmetry central left breast. These areas may represent superimposition shadow but further evaluation is recommended. One of the nodules centrally on the right has a coil clip suggesting prior biopsy. Given the lack of priors, further evaluation is recommended. Overall Assessment: Incomplete: need additional imaging evaluation, BI-RAD 0 Management: Special View Mammogram of both breasts. 1. On the right, spot 3-D CC, spot 3-D MLO (2 sites), and 3-D lateral views. 2. On the left, spot 3-D CC, spot 3-D MLO, and 3-D LM views. 3. Whole bilateral breast ultrasounds. Electronically signed and approved by: Josie Blancas M.D. Radiologist
== END | disposition home or self-care (01) ==
LOC: RADMAMWWP 14:14
PROVIDERS: ATTEND Surgery
DX: Z12.31 Encounter for screening mammogram for malignant neoplasm of breast (principal)
CPT/HCPCS: 77067

== ENCOUNTER → 2021-10-14 | Outpatient (CLI) | payer OTHER ==
--- NOTE | 2021-10-15 10:45 | MM ---
Reason for Exam: Additional evaluation requested from abnormal screening. Last screening mammogram was performed less than 1 month ago. Patient History: Menarche at age 10. First Full-Term at age 18. Premenopausal. Hormonal Contraceptives for 2 years from age 15 until age 17. 03/19/2021, Benign Core Biopsy on the right side. 05/09/2020, Benign Core Biopsy on the right side. 04/15/2018, High risk Core Biopsy on the right side. 05/2017, Bilateral Implants. Maternal grandmother had breast cancer, age 50. Maternal aunt had breast cancer, age 50. Prior Study Comparison: 02/05/2021 Right Diagnostic Ultrasound, [facility]. 10/08/2021 Bilateral MG screening mammo w CAD, [facility]. Tissue Density: The breast tissue is heterogeneously dense. This may lower the sensitivity of mammography. Findings: Analyzed By CAD. Mammogram Nodular density upper outer quadrant right breast persists. Ultrasound is recommended. No persistent nodular mass left breast. Overall Assessment: Incomplete: need additional imaging evaluation, BI-RAD 0 Management: Diagnostic Breast Ultrasound of the right breast. Electronically signed and approved by: Ashish Ghotra M.D. Radiologis
--- NOTE | 2021-10-15 10:46 | USB ---
Reason for Exam: Additional evaluation requested from abnormal screening. Patient History: Menarche at age 10. First Full-Term at age 18. Premenopausal. Hormonal Contraceptives for 2 years from age 15 until age 17. 03/19/2021, Benign Core Biopsy on the right side. 05/09/2020, Benign Core Biopsy on the right side. 04/15/2018, High risk Core Biopsy on the right side. 05/2017, Bilateral Implants. Maternal grandmother had breast cancer, age 50. Maternal aunt had breast cancer, age 50. Technique: Method: Targeted. Prior Study Comparison: 10/08/2021 Bilateral MG screening mammo w CAD, [facility]. Findings: The upper outer quadrant of the right breast, the axilla of the right breast and the retroareolar of the right breast were scanned. 10:00 site of prior biopsy measures 7 x 6 x 9 mm, and probable deep cyst at 9:00 measures 7 x 7 x 7 mm seen on prior US. Overall Assessment: Probably benign, BI-RAD 3 Management: Diagnostic Breast Ultrasound of the right breast in 6 months. A clinical breast exam by your physician is recommended on an annual basis and results should be correlated with mammographic findings. Results were given to the patient verbally at the time of exam. Electronically signed and approved by: Ashish Ghotra M.D. Radiologis
== END | disposition home or self-care (01) ==
LOC: RADMAMWWP 13:30
PROVIDERS: ATTEND Surgery
DX: R92.8 Other abnormal and inconclusive findings on diagnostic imaging of breast (principal)
CPT/HCPCS: 77066

== ENCOUNTER → 2022-05-21 | Outpatient (CLI) | payer OTHER ==
--- NOTE | 2022-05-22 07:30 | US ---
EXAMINATION TYPE: US pelvic complete DATE OF EXAM: 05/21/2022 COMPARISON: [facility] 02/07/2015, CT CLINICAL HISTORY: R10.2 PELVIC AND PERINEAL PAIN. TECHNIQUE: . Transabdominal sonographic images of the pelvis were acquired. Date of LMP: 04/25/2022 EXAM MEASUREMENTS: Uterus: 10.7 x 5.0 x 5.8 cm Endometrial Stripe: 1.4 cm Right Ovary: 1.8 x 1.6 x 2.8 cm Left Ovary: 3.7 x 3.1 x 2.7 cm 1. Uterus: Anteverted wnl 2. Endometrium: wnl 3. Right Ovary: wnl 4. Left Ovary: Anechoic follicle 2.1 x 1.9 x 2.2cm 5. Bilateral Adnexa: wnl 6. Posterior cul-de-sac: wnl IMPRESSION: Lacunar cyst left ovary.
== END | disposition home or self-care (01) ==
LOC: RADUSWWP 15:54
PROVIDERS: ATTEND Family Medicine
DX: N83.292 Other ovarian cyst, left side (principal)
CPT/HCPCS: 76856

== ENCOUNTER → 2023-01-05 | Outpatient (CLI) | payer OTHER ==
--- NOTE | 2023-01-06 23:27 | MM ---
Reason for Exam: Screening (asymptomatic). Last mammogram was performed 1 year(s) and 3 month(s) ago. Patient History: Menarche at age 10. First Full-Term at age 18. Premenopausal. Patient has history of breast feeding. Hormonal Contraceptives for 2 years from age 15 until age 17. 03/19/2021, Benign Core Biopsy on the right side. 05/09/2020, Benign Core Biopsy on the right side. 04/15/2018, High risk Core Biopsy on the right side. 05/2017, Bilateral Implants. Maternal grandmother had breast cancer, age 50. Maternal aunt had breast cancer, age 50. Prior Study Comparison: 10/08/2021 Bilateral MG screening mammo w CAD, [facility]. 10/14/2021 Bilateral MG work up kyle w/imp w/cad B, [facility]. Tissue Density: The breast tissue is heterogeneously dense. This may lower the sensitivity of mammography. Findings: Analyzed By CAD. There are bilateral retropectoral silicone implants demonstrated. Chronic nodularity on the right along with a microclip from prior biopsy. There is no suspicious group of microcalcifications or new suspicious mass in either breast. Overall Assessment: Benign, BI-RAD 2 Management: Screening Mammogram of both breasts in 1 year. . Patient should continue monthly self-breast exams. A clinical breast exam by your physician is recommended on an annual basis. This exam should not preclude additional follow-up of suspicious palpable abnormalities. Note on Jennifer scores and lifetime risk: 1. A Jennifer score greater than 3% is considered moderate risk. If this is the case, consider specialist referral to assess eligibility for a risk reducing agent. 2. If overall lifetime risk for the development of breast cancer is 20% or higher, the patient may qualify for future screening with alternating mammogram and breast MRI. Electronically signed and approved by: Josie Blancas M.D. Radiologist
== END | disposition home or self-care (01) ==
LOC: RADMAMWWP 13:19
PROVIDERS: ATTEND Surgery
DX: Z12.31 Encounter for screening mammogram for malignant neoplasm of breast (principal); Z80.3 Family history of malignant neoplasm of breast; Z98.82 Breast implant status
CPT/HCPCS: 77063; 77067